=== PATIENT | female | born 1970 | race Caucasian/White ===

== ENCOUNTER 2017-02-08 12:42 | Emergency (ER) | payer BC ==
[~2017-02-08] VITALS: Ht 170.2 cm; Wt 138.3 kg
--- NOTE | 2017-02-08 13:10 | Urgent Treatment Center Report ---
History of Present Issue Date/Time Seen by Provider 02/08/17 1308 Visit Reason Pt arrived:Walked Presenting Problem:PT STATES HISTORY OF SWELLING TO HER BLE BUT STATES SINCE GOING TO THE [place] THREE WEEKS AGO, THE SWELLING HAS GOTTEN WORSE AND SHE IS CONCERNED. STATES DOES NOT HAVE PCP AT THIS TIME AND DOES NOT TAKE ANY MEDICATIONS. STATES FEELING TIRED. DENIES ANY OTHER SYMPTOMS Location if Accident: Onset of symptoms date/time:/ or onset unknown for:MEDICAL HX UNKNOWN Have you (or family members/close friends) recently traveled outside the [place]? N If Yes, where/when: Have you had exposure to infectious disease within the past month? TB? Other? Specify: c/o fatigue and LE swelling. Chronic LE swelling "but not typically anything that stays indented when you push on it like this". Went [place] w/ [place] 2[place]5 [place] ago and noticed she was much more tired and out of breath than typical. "and I walk everywhere I go typically". Since that time, more tired and having to take breaks when walking "because I am so tired and need to catch my breath". Denies any pain. No PCP at this time. Source patient Exam Limitations no limitations ALLERGIES Coded Allergies: No Known Allergies (02/08/17) Home Medications Reported Medications No Known Home Medications History Medical History General CAD? No Angina: No PR: No Hypertension? No Hyperlipidemia? No CHF? No DVT? No PE? No COPD? No Asthma? No Anemia? No GERD? No Gastric ulcers? No GI Bleed? No Hernia? No Thyroid Problems? No Hypothyroidism? No CVA? No Seizures? No Diabetes? No Renal Insuffiency? No UTI? No Stones? No GB Disease: No Nephritic Syndrome? No Asplenia? No Hepatitis? No Sickle Cell Disease? No Arthritis? No Migraines? No Cataracts? No Glaucoma? No MRSA? No HIV? No TB? No Anxiety? No Depression? No Cancer? 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 Respiratory see HPI, denies cough, denies wheezing Cardiovascular see HPI, denies chest pain, denies palpitations, denies syncope Gastrointestinal denies abdominal pain, denies constipation, denies diarrhea, denies other (no black or bloody stools) Genitourinary denies: abnormal vaginal bleeding, dysuria, frequency, hematuria. Musculoskeletal see HPI Skin denies lesions, denies lumps, denies rash Psychiatric/Neurological denies headache Physical Exam Vital Signs Vital Signs Date Time Temp Pulse Resp B/P Pulse O2 O2 Flow FiO2 Ox Delivery Rate 02/08 1257 99.3 82 20 111/66 97 General Appearance no apparent distress, obese Neck non-tender, supple Respiratory Status No: respiratory distress, use of accessory muscles. Lung Sounds anterior: lungs clear. posterior: lungs clear. bilateral: lungs clear. Cardiovascular regular rate/rhythm, no murmur, 1-2+ pitting edema bilateral LEs Peripheral Pulses Pulses normal Yes Neurologic alert Skin warm/dry, pallor (pt reports baseline) Medical Decision Making LABS/Meds/Orders Pt receiving controlled substance in ED? No Results/Orders Laboratory Tests 02/08/17 1335: Sodium 140, Potassium 3.7, Chloride 102, Carbon Dioxide 29, BUN 10, Creatinine 0.6, Estimated Creat Clear 253 H, Estimated GFR (MDRD) 107, Glucose 95, Calcium 8.5, Total Bilirubin 0.8, AST 12 L, ALT 13, Alkaline Phosphatase 67, Total Protein 6.5, Albumin 3.1 L, Globulin 3.4 H, Albumin/Globulin Ratio 0.9 L, TSH 1.97, WBC 4.6 L, RBC 3.23 L, Hgb 6.0 *L, Hct 22.5 *L, MCV 69.5 L, RDW 20.2 H , Plt Count 305, MPV 6.7 L, Gran % 66.0, Gran # 3.0, Lymphocytes % 27.3, Monocytes % 3.6, Eosinophils % 2.8, Basophils % 0.4, Lymphocytes # 1.3, Monocytes # 0.2, Eosinophils # 0.1, Basophils # 0.0, PUBS MCHC 27.0 L, MCH 18.7 L Orders Procedure Date/time Status THYROID STIMULATING HORMONE 02/08 1310 Complete CBC WITH AUTO DIFF 02/08 131 Complete CHEM 12 PROFILE 02/08 131 Complete Progress UT Progress Notes Date 02/08/17 Time 1357 Comment lab results pending. Pt up to restroom. No needs at this time. Departure Departure Time of Disposition 1458 Disposition Still a Patient Clinical Impression Primary Impression: Anemia Qualifiers: Anemia type: unspecified type Qualified Code: D64.9 - Anemia, unspecified Condition STABLE Additional Instructions Sent to ER for further evaluation and management. Report called to Josephine. Prescriptions Current Visit Scripts No Known Home Medications at [id number]
[2017-02-08 14:03] LABS: LYMPH # 1.3 K/mm3 (0.7-4.5); LYMPH % 27.3 % (10-50.0)
--- NOTE | 2017-02-08 16:41 | Emergency Room Report ---
History of Present Illness Time Seen by [id number] Presenting Problem in Triage Pt arrived:Walked Presenting Problem:PT STATES HISTORY OF SWELLING TO HER BLE BUT STATES SINCE GOING TO THE [place] THREE WEEKS AGO, THE SWELLING HAS GOTTEN WORSE AND SHE IS CONCERNED. STATES DOES NOT HAVE PCP AT THIS TIME AND DOES NOT TAKE ANY MEDICATIONS. STATES FEELING TIRED. 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 N Clinical Suspician of Infection? N Mental Status: 1 - Regular (Normal Baseline) Sepsis Risk:Low Sepsis Risk Have you (or family members/close friends) recently traveled outside the [place]? N If Yes, where/when: Have you had exposure to infectious disease within the past month? N TB? Other? Specify: H and states she's had some progressive fatigue over the past several weeks and some progressive bilateral lower extremity foot edema over the past several weeks she denies any fever chills nausea vomiting denies any pain she denies any chest pain denies any chest discomfort whatsoever she states she is not having any vaginal bleeding currently and other periods of been regular she states her last period was 3 months unremarkable as well. Denies any melena she denies any rectal bleeding she denies any other blood loss. He states her only symptoms have been some fatigue and some worsening pedal edema. Denies any shortness of breath ALLERGIES Coded Allergies: No Known Allergies (02/08/17) Home Medications Reported Medications No Known Home Medications History Medical History General CAD? No Angina: No CT: No Hypertension? No Hyperlipidemia? No CHF? No DVT? No PE? No COPD? No Asthma? No Anemia? No GERD? No Gastric ulcers? No GI Bleed? No Hernia? No Thyroid Problems? No Hypothyroidism? No CVA? No Seizures? No Diabetes? No Renal Insuffiency? No End Stage Renal Disease? No UTI? No Stones? No GB Disease: No Nephritic Syndrome? No Asplenia? No Hepatitis? No Sickle Cell Disease? No Arthritis? No Migraines? No Cataracts? No Glaucoma? No MRSA? No HIV? No TB? No Anxiety? No Depression? No Cancer? 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 Eyes: conjunctiva/corneas clear ENT: Mucous membranes moist. Neck: No jugular venous distention. Cardiac: regular rate and rhythm Lungs: Clear to auscultation bilaterally Abdomen: Nontender, Nondistended, positive bowel sounds, no rebound : No CVA tenderness Extremities: + 1-2 pedal edema Musculoskeletal: No chest wall tenderness Skin: No rashes or lesions to exposed skin. Neurologic: Alert. No gross focal deficits Psychiatric: Normal affect (Sarah DRAKE, Jean) General Appearance normal appearance Respiratory Status No: respiratory distress. Cardiovascular no JVD Neurologic alert Medical Decision Making LABS/Meds/Orders Pt receiving controlled substance in ED? No Comment Rectal exam here was light brown stool has been sent off for occult blood there is no active bleeding. Patient denies any chest pain or chest discomfort at all I have discussed case with Dr. Sinclair we will place her on iron, will see her Saturday at 9 AM, he desires us to draw an INR and a total iron binding capacity and ferritin level so he can follow those up on Saturday. Results/Orders Laboratory Tests 02/08/17 1646: Stool Occult Blood NEGATIVE 02/08/17 1636: Creatine Kinase Cancelled, CK-MB (CK-2) Rel Index Cancelled, CK and CKMB Interp Cancelled, Troponin I Cancelled, Antibody Screen Cancelled, Miscellaneous Test Cancelled 02/08/17 1335: Iron (send out) Pending, TIBC Pending, % Saturation Pending, Unsaturated IBC Pending 02/08/17 1335: Ferritin Pending 02/08/17 1335: Sodium 140, Potassium 3.7, Chloride 102, Carbon Dioxide 29, BUN 10, Creatinine 0.6, Estimated Creat Clear 253 H, Estimated GFR (MDRD) 107, Glucose 95, Calcium 8.5, Total Bilirubin 0.8, AST 12 L, ALT 13, Alkaline Phosphatase 67, Total Protein 6.5, Albumin 3.1 L, Globulin 3.4 H, Albumin/Globulin Ratio 0.9 L, TSH 1.97, WBC 4.6 L, RBC 3.23 L, Hgb 6.0 *L, Hct 22.5 *L, MCV 69.5 L, RDW 20.2 H , Plt Count 305, MPV 6.7 L, Gran % 66.0, Gran # 3.0, Lymphocytes % 27.3, Monocytes % 3.6, Eosinophils % 2.8, Basophils % 0.4, Lymphocytes # 1.3, Monocytes # 0.2, Eosinophils # 0.1, Basophils # 0.0, PUBS MCHC 27.0 L, MCH 18.7 L Current Medication Orders Sig/August Start time Last Medication Dose Route Stop Time Status Admin Sodium Chloride 10 ML PRN PRN 02/08 1645 AC IV 02/09 1636 Orders Procedure Date/time Status FERRITIN 02/08 1652 Active IRON & TIBC 02/08 1652 Active STOOL OCCULT BLOOD 02/08 1639 Complete IV SALINE LOCK 02/08 1636 Active THYROID STIMULATING HORMONE 02/08 1310 Complete CBC WITH AUTO DIFF 02/08 1310 Complete CHEM 12 PROFILE 02/08 1310 Complete Departure Departure Time of Disposition 1653 Disposition Still a Patient Clinical Impression Primary Impression: Anemia Qualifiers: Anemia type: unspecified type Qualified Code: D64.9 - Anemia, unspecified Condition STABLE Referrals Yahir DRAKE,Chan Smith Patient Instructions Anemia Additional Instructions Return if any chest discomfort whatsoever to the emergency room Follow-up with Dr. Sinclair at 9 AM in his office on Saturday Prescriptions Current Visit Scripts Ferrous Sulfate (IRON) 325 MG PO BID #60 ED Critical Care Critical Care No at 1654
[2017-02-08 16:49] LABS: STOOL OCCULT BLOOD NEGATIVE (NEG)
[2017-02-08] MEDS ORDERED: IRON325 M2 PO (16:56)
[2017-02-08 18:21] VITALS: BP 149/65
[2017-02-10 06:41] LABS: Iron 14 ug/dL (27-159); Iron Saturation 3 % (15-55); UIBC 419 ug/dL (131-425)
== END 2017-02-08 18:21 | disposition still patient (30) ==
LOC: UTC 12:42 → ER 12:49 → UTC 12:49 → ER 12:49
PROVIDERS: Emergency Medicine; Nurse Practitioner Family
DX: D64.9 Anemia, unspecified (principal); M79.89 Other specified soft tissue disorders

== ENCOUNTER 2017-02-11 11:13 | Outpatient (CLI) | payer BC ==
[2017-02-11] VITALS (35 sets, daily range): BP systolic 116–155; BP diastolic 43–95
[~2017-02-11 11:13] MED LIST: IRON325 M2 PO
[2017-02-11 13:30] LABS: ABO BLOOD TYPE A
[2017-02-11 13:31] LABS: ANTIHUMAN GLOB CROSSMATCH COMPAT; RH BLOOD TYPE POSITIVE
[2017-02-11 22:15] LABS: HEMOGLOBIN 9.4 g/dL (12.2-16.2)
[2017-02-12 10:11] LABS: BUN 9 mg/dL (7-18); GFR (ESTIMATED) 107 ML/MIN (59-)
== END 2017-02-11 22:25 | disposition home or self-care (01) ==
LOC: COP 11:13
PROVIDERS: Emergency Medicine
DX: R79.89 Other specified abnormal findings of blood chemistry (principal); Z01.812 Encounter for preprocedural laboratory examination
CPT/HCPCS: P9016

== ENCOUNTER 2017-02-28 08:15 | Outpatient (CLI) | payer BC ==
[2017-02-28 08:50] VITALS: BP 131/75
[2017-02-28 09:20] VITALS: BP 126/78
[2017-02-28 10:00] VITALS: BP 142/64
== END 2017-02-28 10:10 | disposition home or self-care (01) ==
LOC: COP 08:15
DX: D50.9 Iron deficiency anemia, unspecified (principal)
CPT/HCPCS: J1756

== ENCOUNTER 2017-03-20 08:25 | Outpatient (CLI) | payer BC ==
[2017-03-20 08:50] VITALS: BP 137/69
[2017-03-20 09:20] VITALS: BP 139/87
[2017-03-20 10:00] VITALS: BP 145/89
== END 2017-03-20 10:15 | disposition home or self-care (01) ==
LOC: COP 08:25
DX: D50.9 Iron deficiency anemia, unspecified (principal)
CPT/HCPCS: J1756